=== PATIENT | female | born 1960 | race Caucasian/White ===

== ENCOUNTER 2019-02-11 13:00 | Emergency (ER) | payer MEDICAID, OTHER ==
[~2019-02-11] VITALS: Ht 157.5 cm; Wt 73.5 kg
[~2019-02-11 13:00] MED LIST: GABA300C1 PO; HYDR1TAB76 PO; LANTUS SC; METO-460 PO; OMEP40EC1 PO; TRAM50TA3 PO; TYLENOL#3 PO; [UNRECOGNIZED DRUG - CODE] PO; [UNRECOGNIZED DRUG - OTHER] SC
[2019-02-11 13:14] VITALS: BP 92/58
--- NOTE | 2019-02-11 15:48 | NUR ---
PT AMBULATED TO BED 04.
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
--- NOTE | 2019-02-11 16:30 | NUR ---
PT AMBULATED TO THE BATHROOM WITH STEADY GAIT.
--- NOTE | 2019-02-11 16:40 | NUR ---
PT AMBULATED BACK TO ROOM WITH STEADY GAIT.
--- NOTE | 2019-02-11 17:28 | NUR ---
DR LOCKHART AT BEDSIDE FOR PT EVALUATION
[2019-02-11] MEDS ORDERED: KETOROLAC 15 MG/ML VIAL IM ONE (17:35)
[2019-02-11 18:09] VITALS: BP 105/53
== END 2019-02-11 18:07 | disposition home or self-care (01) ==
LOC: MED 13:00
DX: S80.01XA Contusion of right knee, initial encounter (principal); E11.9 Type 2 diabetes mellitus without complications; I10 Essential (primary) hypertension; Z79.4 Long term (current) use of insulin; Z79.899 Other long term (current) drug therapy; W01.0XXA Fall on same level from slipping, tripping and stumbling without subsequent striking against object, initial encounter; Y93.89 Activity, other specified; Y92.89 Other specified places as the place of occurrence of the external cause; Y99.8 Other external cause status
CPT/HCPCS: 73562; 96372; 99283; J1885; Q0092